=== PATIENT | male | born 1940 | race Caucasian/White ===

== ENCOUNTER 2018-05-05 08:45 | Emergency (ER) | payer OTHER, SELFPAY ==
[2018-05-05] VITALS (7 sets, daily range): BP systolic 161–195; BP diastolic 59–81; PULSE 90–102; RESP 20–29; TEMP 36.5; O2SAT 88–94; BMI 27.1
--- NOTE | 2018-05-05 09:14 | DI.RAD.S_ITS ---
PROCEDURE: XR CHEST 1V INDICATIONS: short of breath TECHNIQUE: One view of the chest was acquired. COMPARISON: None. FINDINGS: Surgical changes and devices: None. Lungs and pleura: Lungs are abnormal, with a generalized pulmonary edema pattern and also what may be a pleural effusion or mass at the right lung base. The right hemidiaphragm also may be elevated, versus presence of a subpulmonic right pleural effusion. No pleural effusions or pneumothorax. Mediastinum: Mediastinal contours appear normal. Heart size is normal. Bones and chest wall: No suspicious bony lesions. Overlying soft tissues appear unremarkable. IMPRESSION: Significant pulmonary disease is present, with possible dense pneumonia or a mass right lung base. CT scanning is scheduled. Dictated by: Chris Talavera M.D. on 05/05/2018 at 9:35 Approved by: Chris Talavera M.D. on 05/05/2018 at 9:36
[2018-05-05 09:16] LABS: Add Manual Diff / Slide Review NO; Basophils Absolute Auto 100 /uL (0-100); Basophils Percent Auto 0.9 % (0-2); Eosinophils Absolute Auto 300 /uL (0-450); Eosinophils Percent Auto 2.9 % (2-4); Hematocrit 41.6 % (41-53); Hemoglobin 13.9 g/dL (13.5-17.5); Lymphocytes Absolute Auto 1600 /uL (1100-4500); Lymphocytes Percent Auto 13.9 % (25-40); Mean Corpuscular HGB Conc 33.4 % (30-36); Mean Corpuscular Hemoglobin 26.4 PG (26-34); Mean Corpuscular Volume 79.1 fL (80-100); Monocytes Absolute Auto 1100 /uL (0-900); Monocytes Percent Auto 9.8 % (3-14); Neutrophils Absolute Auto 8100 /uL (1500-7000); Neutrophils Percent Auto 72.5 % (50-75); Platelet Count 460 X10^3/uL (150-400); Red Blood Cell Count 5.25 X10^6/uL (4.5-5.9); Red Cell Distribution Width 14.5 % (11.6-14.8); White Blood Cell Count 11.2 X10^3/uL (4.5-11.0)
--- NOTE | 2018-05-05 09:26 | DI.CT.S_ITS ---
PROCEDURE: CT ANGIO CHEST PE PROTOCOL INDICATIONS: hypoxic with lung cancer TECHNIQUE: After the administration of intravenous contrast, 2 mm thick sections acquired from the pulmonary apices to the posterior costophrenic angles. 3-dimensional maximum intensity projection (MIP) coronal and sagittal reformats were then acquired through the thorax. For radiation dose reduction, the following was used: automated exposure control, adjustment of mA and/or kV according to patient size. COMPARISON: [facility], CR, XR CHEST 1V, 05/05/2018, 9:25. FINDINGS: Image quality: Diagnostic. Pulmonary arteries: Pulmonary arteries are normal in size, and demonstrate no intraluminal filling defects to suggest central pulmonary embolism. Lungs and pleura: There is a moderate to large right-sided pleural effusion with associated mild basilar atelectasis. Small left-sided pleural effusion is evident. There is an area of consolidation identified within the right middle lobe along the right heart border with air bronchograms present. A similar appearance is noted within the lingula. Numerous scattered nodules (numbering greater than 58) are evident within the lungs bilaterally, most pronounced within the bilateral lung bases. These nodules range in size from 3-7 mm with the majority of the nodules measuring approximately 4-5 mm. No definitive lung mass is appreciated. There appear to be areas of pleural thickening, best appreciated within the left costophrenic angle. Mediastinum: Heart size is normal, without pericardial effusion. Coronary and aortic atherosclerosis is present. Multiple small to moderate-sized lymph nodes are present within the mediastinum or hilar regions. The largest lymph node is seen within the subcarina region, measuring up to approximately 13 mm in short axis. Thoracic aorta is normal in caliber and enhancement. Esophagus is normal in caliber, without hiatal hernia. Bones and chest wall: No suspicious bony lesions. Age-appropriate degenerative changes of the spine are present. Ribs and thoracic spine appear intact throughout. Thyroid gland is not enlarged or adequately evaluated. No axillary or supraclavicular adenopathy. Abdomen: Left-sided renal cysts are identified, not completely included or adequately evaluated. Otherwise, the imaged upper abdominal solid organs appear normal in the early arterial phase of enhancement. IMPRESSION: 1. No evidence of pulmonary emboli. 2. Moderate to large right-sided pleural effusion with associated atelectasis. There is also a small left-sided pleural effusion and bibasilar atelectasis. Percutaneous aspiration may be helpful for diagnostic purposes. 3. Right middle lobe and lingular consolidation may represent atelectasis. However, pneumonia or superimposed lung mass is difficult to exclude. Followup on subsequent imaging is recommended. 4. Numerous scattered subcentimeter bilateral pulmonary nodules may be related to a granulomatous process, metastatic disease, or atypical presentation of bronchopneumonia. Clinical correlation is recommended. A short interval followup CT of the chest with contrast is recommended in approximately 6-8 weeks to reevaluate this appearance. 5. Small reactive lymph nodes within the mediastinum. 6. Areas of pleural thickening are best appreciated within the posterior left costophrenic angle, raising the suspicion for possible neoplastic process. Dictated by: Miller Otoole M.D. on 05/05/2018 at 9:41 Approved by: Miller Otoole M.D. on 05/05/2018 at 9:48
[2018-05-05 09:27] LABS: Lactate (Lactic Acid) 1.7 mmol/L (0.7-2.1)
--- NOTE | 2018-05-05 09:30 | ED_ITS ---
HPI - SOB/Dyspnea General Chief Complaint: Shortness of Breath/Dyspnea Stated Complaint: SWELLING/TENDERNESS BOTH FEET Time Seen by Provider: 05/05/18 08:59 Source: patient and family Mode of arrival: ambulatory Limitations: no limitations History of Present Illness Patient is a 78-year-old male with known lung cancer on home oxygen, currently not on any treatment presenting increasing shortness of breath and lower extremity edema. Family states that today he was wheezing and having more difficulty breathing than normal. He was started on 2 L of home oxygen just last week however today they noticed increasing shortness of breath. Today he woke up and says that his legs and feet were swollen they are never swollen. He sleeps in a recliner is and has for years he has not noted any orthopnea but he does have increased shortness of breath with exertion. He denies any fever or chest pain or tightness or palpitations. No known history of congestive heart failure. MD Complaint: shortness of breath Consistency/Duration: constant Related Data Previous Rx's Medication Instructions Recorded furosemide [Lasix] 20 mg PO DAILY #4 tab 05/05/18 prednisone 40 mg PO DAILY #10 tab 05/05/18 Allergies Allergy/AdvReac Type Severity Reaction Status Date / Time No Known Drug Allergies Allergy Verified 05/05/18 10:48 Review of Systems Review of Systems ROS Unobtainable: All systems reviewed & are unremarkable except as noted in HPI and below Constitutional Denies chills, Denies fever(s), Denies lethargy and Denies weakness Eyes Denies change in vision, Denies eye discharge, Denies irritation and Denies loss of vision ENT Ears, Nose, Mouth, and Throat: Denies change in voice, Denies neck pain and Denies sore throat Cardiovascular Denies chest pain, Denies syncope, Reports pedal edema, Reports dyspnea and Reports dyspnea on exertion Respiratory Denies cough, Denies hemoptysis, Reports dyspnea, Reports dyspnea on exertion, Denies stridor and Denies wheezing Gastrointestinal Gastrointestinal: Denies abdominal pain, Denies change in bowel habits, Denies diarrhea, Denies nausea and Denies vomiting Genitourinary Denies hematuria, Denies flank pain, Denies urinary incontinence and Denies urinary urgency Musculoskeletal Denies neck pain Integumentary/Breasts Denies pruritus, Denies erythema, Denies rash and Denies wounds Neurologic Denies confusion, Denies syncope, Denies loss of vision and Denies weakness Psychiatric Denies anxiety, Denies confusion, Denies depression, Denies homicidal ideation and Denies suicidal ideation Allergic/Immunologic Denies wheezing [facility] Medical History Hypertension (Acute) Lung cancer (Acute) Social History Smoking Status: Former smoker Social History Smoking Status: Former smoker Exam Initial Vital Signs Initial Vital Signs: Vital Signs Temperature 97.7 F 05/05/18 08:55 Pulse Rate 101 H 05/05/18 08:55 Respiratory Rate 24 05/05/18 08:55 Blood Pressure 195/81 H 05/05/18 08:55 Pulse Oximetry 88 L 05/05/18 08:55 GENERAL: Alert appearing male slight tachypnea but able to speak HEENT: Head atraumatic,EOMI, pupils reactive, face symmetric, CARDIOVASCULAR: Regular rate and rhythm without murmurs, rubs or gallops. RESPIRATORY: Slight tachypnea and expiratory wheeze is a speaks in full sentences on 4 L of O2 ABDOMEN: Soft, nontender. Normoactive bowel sounds all 4 quadrants. No guarding or rebound. [RECTAL:] [Hemoccult-positive, no hemorrhoids, nontender] : No CVA tenderness EXTREMITIES: Normal range of motion, no clubbing. +1 pitting edema bilaterally Neurovascularly intact NEUROLOGICAL: Alert and oriented x4.Normal gait and speech. SKIN: Warm, dry, no laceration, no petechiae, no rashes or lesions. Course Orders Ordered: ED Orders 05/05/18 08:57 EKG-12 Lead Routine 05/05/18 09:05 B Type Natriuretic Peptide Stat Complete Blood Count AUTO DIFF Stat Comprehensive Metabolic Panel Stat Lactate (Lactic Acid) Stat Magnesium Stat Procalcitonin Stat Troponin & CK Cardiac Panel Stat 05/05/18 09:11 Consult to Respiratory Therapy Evaluate & Treat 05/05/18 09:14 Consult to Respiratory Therapy Evaluate & Treat XR chest 1V Stat 05/05/18 09:26 CT angio chest PE protocol Stat 05/05/18 09:50 Blood Culture Stat 05/05/18 10:51 Urine Culture Stat Urine Microscopic Stat Discontinued Medications Albuterol (Ventolin) 2.5 mg INH Q20M PRN PRN Reason: Shortness Of Breath Or Wheezing Last Admin: 05/05/18 11:09 Dose: 2.5 mg Albuterol/Ipratropium (Duoneb) 3 ml INH NOW ONE Stop: 05/05/18 09:15 Last Admin: 05/05/18 10:26 Dose: 3 ml Vital Signs - 8 hr 05/05/18 08:55 05/05/18 09:30 05/05/18 10:26 Temperature 97.7 F Pulse Rate 101 H 93 H 102 H Respiratory Rate 24 24 23 Blood Pressure 195/81 H Blood Pressure [Left Arm] 194/74 H Pulse Oximetry 88 L 94 89 L 05/05/18 10:30 05/05/18 11:00 05/05/18 11:09 Temperature Pulse Rate 91 H 94 H 90 Respiratory Rate 22 29 H 21 Blood Pressure Blood Pressure [Left Arm] 188/67 H 161/59 H Pulse Oximetry 91 89 L 90 L 05/05/18 11:30 Temperature Pulse Rate 94 H Respiratory Rate 23 Blood Pressure Blood Pressure [Left Arm] 172/61 H Pulse Oximetry 94 MDM - SOB/Dyspnea Lab Data Attestation: I reviewed the patient's lab results. Result diagrams: 05/05/18 09:05 05/05/18 09:05 Lab Results 05/05/18 05/05/18 05/05/18 Range/Units 09:05 09:05 09:05 WBC 11.2 H (4.5-11.0) X10^3/uL RBC 5.25 (4.5-5.9) X10^6/uL Hgb 13.9 (13.5-17.5) g/dL Hct 41.6 (41-53) % MCV 79.1 L (80-100) fL MCH 26.4 (26-34) PG MCHC 33.4 (30-36) % RDW 14.5 (11.6-14.8) % Plt Count 460 H (150-400) X10^3/uL Neut % (Auto) 72.5 (50-75) % Lymph % (Auto) 13.9 L (25-40) % [place] % (Auto) 9.8 (3-14) % Eos % (Auto) 2.9 (2-4) % Baso % (Auto) 0.9 (0-2) % Neut # (Auto) 8100 H (0700-5921) /uL Lymph # (Auto) 1600 (1840-8878) /uL [place] # (Auto) 1100 H (0-900) /uL Eos # (Auto) 300 (0-450) /uL Baso # (Auto) 100 (0-100) /uL Sodium 136 L (137-145) mmol/L Potassium 3.8 (3.4-5.1) mmol/L Chloride 92 L (98-107) mmol/L Carbon Dioxide 33 H (22-32) mmol/L BUN 16 (9-20) mg/dL Creatinine 0.70 (0.66-1.25) mg/dL Estimated GFR > 60.0 (>60) mL/min BUN/Creatinine Ratio 22.9 H (6-22) Glucose 137 H (80-110) mg/dL Lactate (0.7-2.1) mmol/L Calcium 9.4 (8.4-10.2) mg/dL Magnesium 1.8 (1.6-2.3) mg/dL Total Bilirubin 0.5 (0.2-1.3) mg/dL AST 23 (17-59) IU/L ALT 25 (21-72) IU/L Alkaline Phosphatase 95 (38-126) U/L Total Creatine Kinase 71 (55-170) U/L CK-MB (CK-2) TNP CK-MB (CK-2) Rel Index TNP Troponin I < 0.012 (0.01-0.034) ng/mL B-Natriuretic Peptide < 100 (<100) Total Protein 8.0 (6.3-8.2) g/dL Albumin 4.3 (3.5-5.0) g/dL Globulin 3.7 (1.7-4.1) g/dL Albumin/Globulin Ratio 1.2 (1.0-2.8) Procalcitonin < 0.05 (<0.5) ng/mL Urine RBC (0-5/HPF) Urine WBC (0-5/HPF) Ur Squamous Epith Cells Urine Bacteria (None) Ur Culture Indicated? 05/05/18 05/05/18 Range/Units 09:05 10:51 WBC (4.5-11.0) X10^3/uL RBC (4.5-5.9) X10^6/uL Hgb (13.5-17.5) g/dL Hct (41-53) % MCV (80-100) fL MCH (26-34) PG MCHC (30-36) % RDW (11.6-14.8) % Plt Count (150-400) X10^3/uL Neut % (Auto) (50-75) % Lymph % (Auto) (25-40) % [place] % (Auto) (3-14) % Eos % (Auto) (2-4) % Baso % (Auto) (0-2) % Neut # (Auto) (3017-1539) /uL Lymph # (Auto) (7557-2422) /uL [place] # (Auto) (0-900) /uL Eos # (Auto) (0-450) /uL Baso # (Auto) (0-100) /uL Sodium (137-145) mmol/L Potassium (3.4-5.1) mmol/L Chloride (98-107) mmol/L Carbon Dioxide (22-32) mmol/L BUN (9-20) mg/dL Creatinine (0.66-1.25) mg/dL Estimated GFR (>60) mL/min BUN/Creatinine Ratio (6-22) Glucose (80-110) mg/dL Lactate 1.7 (0.7-2.1) mmol/L Calcium (8.4-10.2) mg/dL Magnesium (1.6-2.3) mg/dL Total Bilirubin (0.2-1.3) mg/dL AST (17-59) IU/L ALT (21-72) IU/L Alkaline Phosphatase (38-126) U/L Total Creatine Kinase (55-170) U/L CK-MB (CK-2) CK-MB (CK-2) Rel Index Troponin I (0.01-0.034) ng/mL B-Natriuretic Peptide (<100) Total Protein (6.3-8.2) g/dL Albumin (3.5-5.0) g/dL Globulin (1.7-4.1) g/dL Albumin/Globulin Ratio (1.0-2.8) Procalcitonin (<0.5) ng/mL Urine RBC 0-1/hpf (0-5/HPF) Urine WBC 0-1/hpf (0-5/HPF) Ur Squamous Epith Cells 0-1 /hpf Urine Bacteria Occasional (0-1) (None) Ur Culture Indicated? Specimen cultured Urine Dip Bedside Urine Glucose Negative Bedside Urine Bilirubin - Negative Bedside Urine Ketone ++ 40 Urine Specific [place] 1.020 Bedside Urine Occult Blood - Negative Bedside Urine pH 6.0 Bedside Urine Protein + 30 Bedside Urine Urobilinogen - Negative Bedside Urine Nitrite - Negative Bedside Urine Leukocytes +/- 15 Esterase Imaging Data Chest x-ray: Radiologist's impression: PROCEDURE: XR CHEST 1V INDICATIONS: short of breath TECHNIQUE: One view of the chest was acquired. COMPARISON: None. FINDINGS: Surgical changes and devices: None. Lungs and pleura: Lungs are abnormal, with a generalized pulmonary edema pattern and also what may be a pleural effusion or mass at the right lung base. The right hemidiaphragm also may be elevated, versus presence of a subpulmonic right pleural effusion. No pleural effusions or pneumothorax. Mediastinum: Mediastinal contours appear normal. Heart size is normal. Bones and chest wall: No suspicious bony lesions. Overlying soft tissues appear unremarkable. IMPRESSION: Significant pulmonary disease is present, with possible dense pneumonia or a mass right lung base. CT scanning is scheduled. Dictated by: Chris Talavera M.D. on 05/05/2018 at 9:35 Approved by: Chris Talavera M.D. on 05/05/2018 at 9:36 CT scan - chest: Radiologist's impression: PROCEDURE: CT ANGIO CHEST PE PROTOCOL INDICATIONS: hypoxic with lung cancer TECHNIQUE: After the administration of intravenous contrast, 2 mm thick sections acquired from the pulmonary apices to the posterior costophrenic angles. 3-dimensional maximum intensity projection (MIP) coronal and sagittal reformats were then acquired through the thorax. For radiation dose reduction, the following was used: automated exposure control, adjustment of mA and/or kV according to patient size. [facility] 9:25. FINDINGS: Image quality: Diagnostic. Pulmonary arteries: Pulmonary arteries are normal in size, and demonstrate no intraluminal filling defects to suggest central pulmonary embolism. Lungs and pleura: There is a moderate to large right-sided pleural effusion with associated mild basilar atelectasis. Small left-sided pleural effusion is evident. There is an area of consolidation identified within the right middle lobe along the right heart border with air bronchograms present. A similar appearance is noted within the lingula. Numerous scattered nodules (numbering greater than 58) are evident within the lungs bilaterally, most pronounced within the bilateral lung bases. These nodul es range in size from 3-7 mm with the majority of the nodules measuring approximately 4-5 mm. No definitive lung mass is appreciated. There appear to be areas of pleural thickening, best appreciated within the left costophrenic angle. Mediastinum: Heart size is normal, without pericardial effusion. Coronary and aortic atherosclerosis is present. Multiple small to moderate-sized lymph nodes are present within the mediastinum or hilar regions. The largest lymph node is seen within the subcarina region, measuring up to approximately 13 mm in short axis. Thoracic aorta is normal in caliber and enhancement. Esophagus is normal in caliber, without hiatal hernia. Bones and chest wall: No suspicious bony lesions. Age-appropriate degenerative changes of the spine are present. Ribs and thoracic spine appear intact throughout. Thyroid gland is not enlarged or adequately evaluated. No axillary or supraclavicular adenopathy. Abdomen: Left-sided renal cysts are identified, not completely included or adequately evaluated. Otherwise, the imaged upper abdominal solid organs appear normal in the early arterial phase of enhancement. IMPRESSION: 1. No evidence of pulmonary emboli. 2. Moderate to large right-sided pleural effusion with associated atelectasis. There is also a small left-sided pleural effusion and bibasilar atelectasis. Percutaneous aspiration may be helpful for diagnostic purposes. 3. Right middle lobe and lingular consolidation may represent atelectasis. However, pneumonia or superimposed lung mass is difficult to exclude. Followup on subsequent imaging is recommended. 4. Numerous scattered subcentimeter bilateral pulmonary nodules may be related to a granulomatous process, metastatic disease, or atypical presentation of bronchopneumonia. Clinical correlation is recommended. A short interval followup CT of the chest with contrast is recommended in approximately 6-8 weeks to reevaluate this appearance. 5. Small reactive lymph nodes within the mediastinum. 6. Areas of pleural thickening are best appreciated within the posterior left costophrenic angle, raising the suspicion for possible neoplastic process. Dictated by: Miller Otoole M.D. on 05/05/2018 at 9:41 ECG Data Attestation: I personally reviewed and interpreted this ECG as follows: Prior ECG tracings: not available for review Interpretation: Sinus rhythm rate [address] changes no T-wave inversions incomplete right bundle branch block is no priors to compare MDM Narrative Medical decision making narrative: At this time after albuterol patient is breathing much better he is back down to 2 L. He has no fever no body aches no worsening productive cough CT suggested possible pneumonia however at this time patient has no clinical symptoms of pneumonia and procalcitonin is negative. Patient is mostly about his lower extremity edema. We will send him home with Lasix and prednisone and albuterol inhaler. Is at this time no indications for admission. Discharge Plan Departure Patient Disposition: Home Clinical Impression: Pleural effusion Discharge Date/Time: 05/05/18 11:53 Interventions: ED Discharge Assessment Last Done: 05/05/18 11:53 Instructions: Pleural Effusion Activity Restrictions/Additional Instructions: *You have been diagnosed with early effusion *What to do: You may eventually require drainage of the fluid on her lungs however for now would start a water pill. Also prednisone might help with the inflammation in her lungs. *Continue to take medications as directed--> [facility] Lasix 20 mg once a day for 4 days Prednisone 40 mg once a day for 5 days Albuterol inhaler with spacer every 4 hr if needed for shortness of breath *Follow up with your primary care provider in 2-3 days *Return to ER if you should have increasing shortness of breath, productive cough, fever, confusion or any new, worsening or concerning symptoms Prescriptions: New prednisone 20 mg tablet 40 mg PO DAILY Qty: 10 RF: 0 furosemide [Lasix] 20 mg tablet 20 mg PO DAILY Qty: 4 RF: 0
[2018-05-05 09:45] LABS: Procalcitonin < 0.05 ng/mL (<0.5)
[2018-05-05 09:47] LABS: B Type Natriuretic Peptide < 100 (<100)
[2018-05-05 09:49] LABS: Alanine Aminotransferase 25 IU/L (21-72); Albumin 4.3 g/dL (3.5-5.0); Albumin Globulin Ratio 1.2 (1.0-2.8); Alkaline Phosphatase 95 U/L (38-126); Aspartate Aminotransferase 23 IU/L (17-59); BUN Creatinine Ratio 22.9 (6-22); Bilirubin Total 0.5 mg/dL (0.2-1.3); Blood Urea Nitrogen 16 mg/dL (9-20); Calcium 9.4 mg/dL (8.4-10.2); Carbon Dioxide 33 mmol/L (22-32); Chloride 92 mmol/L (98-107); Creatine Kinase 71 U/L (55-170); Estimated Glomerular Filt Rate > 60.0 mL/min (>60); Globulin 3.7 g/dL (1.7-4.1); Glucose 137 mg/dL (80-110); HEMOLYSIS < 15 (0-50); Magnesium 1.8 mg/dL (1.6-2.3); Potassium 3.8 mmol/L (3.4-5.1); Sodium 136 mmol/L (137-145)
[2018-05-05 10:00] LABS: Troponin I < 0.012 ng/mL (0.01-0.034)
[2018-05-05] MEDS: ALBUTEROL/IPRATROPIUM 3 ML AMPUL INH (10:26)
[2018-05-05 11:09] LABS: Bacteria Urine Occasional (0-1); Culture Indicated Urine Specimen Cultured; RBC Urine 0-1/HPF (0-5/HPF); Squamous Epithelial Cell Urine 0-1 /HPF; WBC Urine 0-1/HPF (0-5/HPF)
[2018-05-05] MEDS: ALBUTEROL 2.5 MG/3 ML NEB (ADULT) INH (11:09)
== END 2018-05-05 11:53 | disposition home or self-care (01) ==
PROVIDERS: Emergency Provider Emergency Medicine
DX: J90 Pleural effusion, not elsewhere classified (principal)
CPT/HCPCS: 36415; 36591; 71045; 71275; 80053; 81003; 81015; 82550; 83605; 83735; 83880; 84145; 84484; 85025; 87040; 87086; 93005; 94640; 99283; 99285; J7613; Q9967